=== PATIENT | female | born 1955 | race Caucasian/White ===

== ENCOUNTER 2022-04-20 20:00 | Emergency (ER) | payer BC ==
[~2022-04-20] VITALS: Ht 167.6 cm; Wt 89.8 kg
[~2022-04-20 20:00] MED LIST: IBUP-1969 PO; NIRM1TAB PO
--- NOTE | 2022-04-20 20:30 | NUR ---
Patient to tent for evaluation.
[2022-04-20 20:35] VITALS: BP_SYST 134
--- NOTE | 2022-04-20 20:59 | NUR ---
PT from home with c/o of sneezing since yesterday, however she reports that it stopped after taking benadrly. Pt reports being COVID positive March 31 and COVID positive again today. Reports being winded with walking. Pt is speaking in full sentences, even and unlabored breathing, no signs of resp distress.
--- NOTE | 2022-04-20 20:59 | NUR ---
Dr. Torres with patient in tent for evaluation.
[2022-04-20] MEDS ORDERED: HYDR12.585 PO (21:49)
[2022-04-20] MEDS ORDERED: NIRM1TAB PO (21:49)
[2022-04-20 21:56] VITALS: BP_SYST 134
--- NOTE | 2022-04-20 21:56 | NUR ---
Patient given written and verbal discharge instructions and verbalizes understanding. ER Dr. Torres discussed with patient the results and treatment provided. Patient in stable condition. ID arm band removed. Rx of hydrodiuril and paxlovid given. Patient educated on pain management and to follow up with PMD. Pain Scale 0. Opportunity for questions provided and answered. Medication side effect fact sheet provided.
== END 2022-04-20 21:56 | disposition home or self-care (01) ==
LOC: SED 20:00
DX: U07.1 COVID-19 (principal); R05.9 Cough, unspecified; J02.9 Acute pharyngitis, unspecified; Z79.899 Other long term (current) drug therapy
CPT/HCPCS: 36415; 99283

== ENCOUNTER 2022-04-25 14:03 | Emergency (ER) | payer BC ==
[~2022-04-25] VITALS: Ht 162.6 cm; Wt 68.0 kg
[~2022-04-25 14:03] MED LIST changes: +HYDR12.585 PO
[2022-04-25 14:05] VITALS: BP_SYST 138
--- NOTE | 2022-04-25 14:05 | NUR ---
Patient triaged and placed in waiting room. VSS and patient appears in no acute distress at this time. Accompanied by SELF, awaiting available bed, and MD notified of need for MSE.
--- NOTE | 2022-04-25 14:45 | NUR ---
PT STATES SHE HAS TAKEN PAXLOVID TWICE, HER LAST DOSE IS TONIGHT. PRESENTS WITH EPIGASTRIC/CHEST PAIN. STATES SHE STARTED PAXLOVID ON 04/02, WHEN SHE TESTED + FOR COVID STARTED PAXLOVID A SECOND TIME ON 04/20
--- NOTE | 2022-04-25 15:20 | NUR ---
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
[2022-04-25 15:59] LABS: BASOPHILS % (AUTO) 0.4 % (0.0-2.0); EOSINOPHILS # (AUTO) 0.1 K/uL (0.0-0.4); HEMATOCRIT 39.2 % (36-48); HEMOGLOBIN 12.8 g/dL (12.0-16.0); LYMPHOCYTES # (AUTO) 1.1 K/uL (1.0-5.5); MEAN CORPUSCULAR HEMOGLOBIN 28 pg (27-31); MEAN CORPUSCULAR HGB CONC 33 % (32-36); MEAN CORPUSCULAR VOLUME 86 fL (79.0-98.0); MONOCYTES # (AUTO) 0.6 K/uL (0.0-1.0); MONOCYTES % (AUTO) 9.1 % (1.7-9.3); NEUTROPHILS # (AUTO) 5.1 K/uL (1.8-7.7); NEUTROPHILS % (AUTO) 72.5 % (40.0-70.0); PLATELET COUNT (AUTO) 204 K/uL (130-430); RED BLOOD CELL COUNT(AUTO) 4.58 MIL/uL (4.2-6.2); RED CELL DISTRIBUTION WIDTH 13.6 % (9.0-15.0); WHITE BLOOD COUNT (AUTO) 7.1 K/uL (4.8-10.8)
[2022-04-25 16:23] LABS: ANION GAP 9 (5-15); CALCIUM 9.2 mg/dL (8.4-11.0); CHLORIDE 98 mmol/L (98-107); CREATININE 0.84 mg/dL (0.55-1.30); GLUCOSE 136 mg/dL (70-99); POTASSIUM 3.7 mmol/L (3.5-5.1); SODIUM SERUM 135 mmol/L (136-145); UREA NITROGEN, BLOOD 17 mg/dL (8-21)
[2022-04-25 16:32] LABS: ALANINE AMINOTRANSFERASE 36 U/L (12-78); ALBUMIN 3.7 g/dL (3.4-4.8); ASPARTATE AMINOTRANSFERASE 18 U/L (10-37); TOTAL BILIRUBIN 0.4 mg/dL (0.0-1.0)
[2022-04-25 16:51] LABS: GFR AFRICAN AMERICAN 87 mL/min (>90)
[2022-04-25] MEDS ORDERED: KETOROLAC TROMETHAMINE 60 MG/2 ML VIAL IM ONE (17:15)
[2022-04-25] MEDS ORDERED: IBUP-1969 PO (19:06)
--- NOTE | 2022-04-25 19:18 | NUR ---
Patient given written and verbal discharge instructions and verbalizes understanding. ER MD discussed with patient the results and treatment provided. Patient in stable condition. ID arm band removed. Rx of ibuprofen given. Patient educated on pain management and to follow up with PMD. Pain Scale 0/10. Opportunity for questions provided and answered. Medication side effect fact sheet provided.
[2022-04-25 19:20] VITALS: BP_SYST 134
== END 2022-04-25 19:20 | disposition home or self-care (01) ==
LOC: SED 14:03
DX: U07.1 COVID-19 (principal); R07.9 Chest pain, unspecified; I10 Essential (primary) hypertension; J45.909 Unspecified asthma, uncomplicated; Z79.899 Other long term (current) drug therapy
CPT/HCPCS: 99285; 71045; 80053; 85025; 85379; 84484; 36415; 93005; 96372; J1885

== ENCOUNTER 2022-05-02 14:43 | Emergency (ER) | payer BC ==
[~2022-05-02] VITALS: Ht 167.6 cm; Wt 99.8 kg
[2022-05-02 14:57] VITALS: BP_SYST 146
[2022-05-02] MEDS ORDERED: ASPIRIN 81 MG TAB.CHEW PO ONE (15:00)
[2022-05-02] MEDS ORDERED: LORazepam 1 MG TABLET PO ONE (15:30)
[2022-05-02] MEDS ORDERED: NACL 0.9% 1,000 ML IV ONE (15:30)
[2022-05-02] MEDS ORDERED: iohexoL 350 mgI/mL, 100 ML INFUS..BTL IV ONE (16:10)
[2022-05-02 16:25] LABS: BASOPHILS % (AUTO) 0.4 % (0.0-2.0); EOSINOPHILS # (AUTO) 0.2 K/uL (0.0-0.4); EOSINOPHILS % (AUTO) 3.1 % (0.0-4.0); HEMATOCRIT 35.7 % (36-48); HEMOGLOBIN 11.8 g/dL (12.0-16.0); LYMPHOCYTES # (AUTO) 1.2 K/uL (1.0-5.5); LYMPHOCYTES % (AUTO) 19.4 % (20.5-51.5); MEAN CORPUSCULAR HEMOGLOBIN 29 pg (27-31); MEAN CORPUSCULAR HGB CONC 33 % (32-36); MEAN CORPUSCULAR VOLUME 86 fL (79.0-98.0); MONOCYTES # (AUTO) 0.7 K/uL (0.0-1.0); MONOCYTES % (AUTO) 11.4 % (1.7-9.3); NEUTROPHILS # (AUTO) 4.2 K/uL (1.8-7.7); NEUTROPHILS % (AUTO) 65.7 % (40.0-70.0); PLATELET COUNT (AUTO) 183 K/uL (130-430); RED BLOOD CELL COUNT(AUTO) 4.14 MIL/uL (4.2-6.2); WHITE BLOOD COUNT (AUTO) 6.4 K/uL (4.8-10.8)
[2022-05-02 16:42] LABS: CALCIUM 8.7 mg/dL (8.4-11.0); CREATININE 0.98 mg/dL (0.55-1.30); POTASSIUM 3.8 mmol/L (3.5-5.1)
[2022-05-02 16:59] LABS: ALBUMIN 3.3 g/dL (3.4-4.8); TOTAL BILIRUBIN 0.2 mg/dL (0.0-1.0)
[2022-05-02] MEDS ORDERED: MORPHINE 4 MG INJ. 4 MG/ML VIAL ONE (18:05)
[2022-05-02] MEDS ORDERED: HYDR-3917 PO (18:30)
[2022-05-02] MEDS ORDERED: ANT30 PO (18:30)
[2022-05-02 19:02] VITALS: BP_SYST 133
== END 2022-05-02 19:00 | disposition home or self-care (01) ==
LOC: SED 14:43
DX: R07.9 Chest pain, unspecified (principal); I10 Essential (primary) hypertension; J45.909 Unspecified asthma, uncomplicated; Z79.899 Other long term (current) drug therapy
CPT/HCPCS: 99285; 96360; 71275; 71045; 80053; 83690; 85025; 84484; 36415; 93005; 76376; Q9967; J7030; J2270